=== PATIENT | female | born 1965 | race Caucasian/White ===

== ENCOUNTER 2018-09-16 20:26 | Emergency (ER) | payer SELFPAY ==
--- NOTE | 2018-09-16 21:25 | EDM.PDOC ---
ED HPI GENERAL MEDICAL PROBLEM - General Chief Complaint: Lower Extremity Injury/Pain Stated Complaint: INJURED RIGHT FOOT Time Seen by Provider: 09/16/18 20:29 Source of Information: Reports: Patient History Limitations: Reports: No Limitations - History of Present Illness INITIAL COMMENTS - FREE TEXT/NARRATIVE: This is a 53-year-old female. Apparently 3-4 weeks ago she slammed her right foot in a truck door. She states recently she dropped something on it. She has a lot of pain in that right dorsal foot and especially her first and second toes. There is also a lot of swelling. She comes to the ER because of her right foot pain and really is not infected anything else. She has a history of lung cancer that is too far advanced according to the patient for them to give her chemotherapy and/or radiation. She isn't certain whether she has metastasis to her bones or not. She is being taken care of by a local physician. She also has a history of seizures. She denies any fever or chills. She states she did vomit yesterday one time but she has not been vomiting today. Right Foot Pain Score (Numeric/FACES): 9 - Related Data Allergies Allergy/AdvReac Type Severity Reaction Status Date / Time steroids. Allergy Swelling Uncoded 09/16/18 20:38 Home Meds: Home Meds Carisoprodol [Soma] 09/16/18 [History] Hydrocodone/Acetaminophen [Hydrocodon-Acetaminophen 5-325] 09/16/18 [History] PHENobarbital [Phenobarbital] 09/16/18 [History] Phenytoin Sodium Extended [Dilantin] 09/16/18 [History] cephALEXin [Keflex] 500 mg PO TID #30 cap 09/16/18 [Rx] Past Medical History Neurological History: Reports: Seizure Oncologic (Cancer) History: Reports: Lung Social & Family History - Tobacco Use Smoking Status *Q: Current Every Day Smoker Years of Tobacco use: 40 Packs/Tins Daily: 1 Review of Systems - Review of Systems Review Of Systems: See Below Constitutional: Denies: Chills, Fever Eyes: Reports: Other (Eversion of her left lower lid) Ears: Reports: No Symptoms Nose: Reports: No Symptoms Mouth/Throat: Reports: Other (Severely advanced dental caries of her teeth with multiple rotten teeth) Respiratory: Reports: Shortness of Breath, Wheezing, Cough Cardiovascular: Denies: Chest Pain GI/Abdominal: Reports: Abdominal Pain, Nausea, Vomiting. Denies: Diarrhea Genitourinary: Reports: No Symptoms Musculoskeletal: Reports: Foot Pain Skin: Reports: Other (Reddened and swollen skin of her right foot and toes) Neurological: Reports: No Symptoms Psychiatric: Reports: No Symptoms ED EXAM, GENERAL - Physical Exam Exam: See Below Exam Limited By: No Limitations General Appearance: Alert, WD/WN, No Apparent Distress Eye Exam: Bilateral Eye: Other (Her left eye has everted lower lid noted) Ears: Normal External Exam Nose: Normal Inspection Throat/Mouth: Normal Lips, No Airway Compromise, Other (She has marked advanced caries with multiple rotten teeth in her mouth) Head: Normocephalic Neck: Supple Respiratory/Chest: No Respiratory Distress, Other (She has decreased breath sounds in the bases bilaterally and she has some crackles noted on the right base, she says she has bone cancer in both of her lungs but she doesn't think she has any metastasis to her bones) Cardiovascular: Regular Rate, Rhythm, No Murmur GI/Abdominal: Soft, Other (She is sore in the upper abdomen but there is no rigidity there's no guarding or rebound noted) Back Exam: Full Range of Motion Extremities: Other (Her right foot has some erythema over the distal forefoot into the toes and the first and second toe were swollen more than the third fourth and fifth though they all are slightly swollen, the tip of the great toe is cooler than the rest of the toe but still has adequate capillary refill of less than 2 seconds, any palpation of the toes without forefoot and she has lots of pain, the ankle and the heel of that right foot do not show any pathology) Neurological: Alert, Oriented Psychiatric: Normal Affect, Normal Mood Skin Exam: Warm, Dry Course - Vital Signs Last Recorded V/S: Last Vital Signs Temp 98.1 F 09/16/18 20:40 Pulse 75 09/16/18 20:40 Resp 18 09/16/18 20:40 BP 126/75 09/16/18 20:40 Pulse Ox 99 09/16/18 20:40 - Orders/Labs/Meds Orders: Active Orders 24 hr Category Date Time Status Foot Comp Min 3V Rt [CR] Stat Exams 09/16/18 21:11 Taken cefTRIAXone 1 GM with Lidocaine 1% 2.1 ML IM Med 09/16/18 21:45 Ordered cefTRIAXone [Rocephin] 1 gm Lidocaine 1% [Xylocaine 1%] 2.1 ml IM Q24H Medication Orders Ceftriaxone Sodium 1 gm/ (Lidocaine HCl 2.1 ml) 0 gm IM Q24H [facility] Meds: Medications Generic Name Dose Route Start Last Admin Trade Name Shena PRN Reason Stop Dose Admin Ceftriaxone Sodium 1 gm/ 0 gm 09/16/18 21:45 Lidocaine HCl 2.1 ml IM Q24H [facility] - Radiology Interpretation Free Text/Narrative:: X-rays of the right foot reveals degenerative changes and may be an old fracture of the distal phalanx of the great toe. She does have a lot of changes in her bones as far as osteopenia noted. - Re-Assessments/Exams Free Text/Narrative Re-Assessment/Exam: 09/16/18 21:38 I spoke to the patient regarding the x-ray results. Since it is been 3-4 weeks the bone is already solidified at this point and is just a matter of being nice to it and careful with it and keeping it elevated and I'm going to put her on some antibiotics for what I think is probably a infection in that distal foot as well. I'm going to encourage her to get a good pedicure to clean up her nails and clean up her cuticles because they could certainly be the source of her infection. She is to follow-up with her doctor here this week for recheck. Departure - Departure Time of Disposition: 21:42 Disposition: Home, Self-Care 01 Condition: Poor Clinical Impression: Cellulitis of right foot Fracture of right great toe with routine healing Qualifiers: Fracture type: closed Phalanx: distal Fracture alignment: nondisplaced Qualified Code(s): S92.424D - Nondisplaced fracture of distal phalanx of right great toe, subsequent encounter for fracture with routine healing - Discharge Information *PRESCRIPTION DRUG MONITORING PROGRAM REVIEWED*: Not Applicable *COPY OF PRESCRIPTION DRUG MONITORING REPORT IN PATIENT MARCUS: Not Applicable Prescriptions: cephALEXin [Keflex] 500 mg PO TID #30 cap Referrals: Raúl Capps MD [Primary Care Provider] - Forms: ED Department Discharge Additional Instructions: Keep that foot elevated as much as possible, use gentle warm to the foot to help with the circulation, take the antibiotics starting tomorrow when you get them, follow up with your primary care provider this week, continuing to walk on the heel of the right foot and not on the toes, return to the ER if needed - My Orders Last 24 Hours: My Active Orders 09/16/18 21:11 Foot Comp Min 3V Rt [CR] Stat 09/16/18 21:45 cefTRIAXone 1 GM with Lidocaine 1% 2.1 ML IM cefTRIAXone [Rocephin] 1 gm Lidocaine 1% [Xylocaine 1%] 2.1 ml IM Q24H - Assessment/Plan Last 24 Hours: My Active Orders 09/16/18 21:11 Foot Comp Min 3V Rt [CR] Stat 09/16/18 21:45 cefTRIAXone 1 GM with Lidocaine 1% 2.1 ML IM cefTRIAXone [Rocephin] 1 gm Lidocaine 1% [Xylocaine 1%] 2.1 ml IM Q24H
[2018-09-16] MEDS ORDERED: cefTRIAXone 1 GM, Lidocaine 1% 2.1 ML IM SCH ×2 (21:45)
--- NOTE | 2018-09-17 18:15 | CR ---
Right foot: Four views of the right foot were obtained. Comparison: No prior foot exam. Slight degenerative change is noted within the first MTP joint. Soft tissue swelling is identified. Mild joint space narrowing is noted within the mid foot. No acute fracture, dislocation or other bony abnormality is seen. Impression: 1. Mild degenerative change as noted above. 2. Soft tissue swelling. 3. No acute bony abnormality is identified. Diagnostic code #2
== END 2018-09-16 22:10 | disposition home or self-care (01) ==
LOC: JD.ED 20:26
DX: L03.115 Cellulitis of right lower limb (principal); S92.424D Nondisplaced fracture of distal phalanx of right great toe, subsequent encounter for fracture with routine healing; F17.210 Nicotine dependence, cigarettes, uncomplicated; Z88.8 Allergy status to other drugs, medicaments and biological substances
CPT/HCPCS: 73630; 96372; 99283; J0696; J2001